=== PATIENT | female | born 1980 | race Caucasian/White ===

== ENCOUNTER 2017-01-27 15:33 | Emergency (ER) | payer OTHER ==
[~2017-01-27] VITALS: Ht 177.8 cm; Wt 85.3 kg
[2017-01-27 15:56] VITALS: BP 113/66
--- NOTE | 2017-01-27 16:11 | PHYS DOC ---
Past History Past Medical History: No Pertinent History Past Surgical History: Cholecystectomy Alcohol Use: None Drug Use: None Adult General Chief Complaint Chief Complaint: KNEE INJURY [facility] HPI Patient is a 36 year old female who presents with left knee injury that happened prior to arrival while she was moving some furniture. Patient states she hyperextended her left knee. Patient states she can walk on it however is painful when applying pressure. Patient denies any other injuries. Patient has no complaints of hip pain or ankle pain. Pertinent exam findings: Left knee tender to palpation over the proximal tibia and joint line no effusion ED course: Patient seen upon arrival x-ray of the left knee ordered 1615: Rest the x-ray results with the patient who wanted an Tai bandage and recommended follow-up with PCP in one to 2 days Pertinent findings: 3 view x-ray of the left knee shows no obvious fracture MMD: After reviewing the chart, CC/HPI/PMH, physical exam, x-ray results I do not believe the patient sustained a significant injury to the left lower leg wanting further workup and admission at this time. I believe the patient is stable to be discharged home with short-term follow-up with her PCP for further evaluation and possible MRI of her left knee to evaluate further for potential cartilage or ligament injury. Patient is comfortable being discharged home. Post Tai wrap application the left lower leg is neurovascularly intact. Additional verbal discharge instructions were provided to the patient and that if symptoms get worse or any new symptoms arise that are worrisome to the patient she is to return to the emergency room immediately Review of Systems Review of Systems Constitutional: Denies fever or chills [] Eyes: Denies change in visual acuity, redness, or eye pain [] HENT: Denies nasal congestion or sore throat [] Respiratory: Denies cough or shortness of breath [] Cardiovascular: No additional information not addressed in HPI [] GI: Denies abdominal pain, nausea, vomiting, bloody stools or diarrhea [] : Denies dysuria or hematuria [] Musculoskeletal: Left knee pain Integument: Denies rash or skin lesions [] Neurologic: Denies headache, focal weakness or sensory changes [] Endocrine: Denies polyuria or polydipsia [] Allergies Allergies Allergies Coded Allergies Type Severity Reaction Last Updated Verified No Known Drug Allergies 01/27/17 No Physical Exam Physical Exam Constitutional: Well developed, well nourished, no acute distress, non-toxic appearance. [] HENT: Normocephalic, atraumatic, bilateral external ears normal, oropharynx moist, no oral exudates, nose normal. [] Eyes: PERRLA, EOMI, conjunctiva normal, no discharge. [] Neck: Normal range of motion, no tenderness, supple, no stridor. [] Cardiovascular:Heart rate regular rhythm, no murmur [] Lungs & Thorax: Bilateral breath sounds clear to auscultation [] Abdomen: Bowel sounds normal, soft, no tenderness, no masses, no pulsatile masses. [] Skin: Warm, dry, no erythema, no rash. [] Back: No tenderness, no CVA tenderness. [] Extremities: Joint tenderness and proximal tibial tenderness to the left knee with decreased range of motion secondary to pain Neurologic: Alert and oriented X 3, normal motor function, normal sensory function, no focal deficits noted. [] Psychologic: Affect normal, judgement normal, mood normal. [] Current Patient Data Vital Signs Vital Signs Date Time Temp Pulse Resp B/P (MAP) Pulse Ox O2 Delivery O2 Flow Rate FiO2 01/27/17 15:56 98.0 81 20 98 EKG EKG [] Radiology/Procedures Radiology/Procedures X-ray three-view left knee no obvious fracture [] Course & Med Decision Making Course & Med Decision Making Pertinent Labs and Imaging studies reviewed. (See chart for details) [] Dragon Disclaimer Dragon Disclaimer This chart was dictated in whole or in part using Voice Recognition software in a busy, high-work load, and often noisy Emergency Department environment. It may contain unintended and wholly unrecognized errors or omissions. Departure Departure: Impression: Primary Impression: Left knee sprain Disposition: 01 HOME, SELF-CARE Condition: GUARDED Referrals: FERNANDO HOLM MD (PCP) Additional Instructions: Please follow up with her family doctor one to 2 days Problem Qualifiers Primary Impression: Left knee sprain Encounter type: initial encounter Involved ligament of knee: unspecified ligament Qualified Codes: S83.92XA - Sprain of unspecified site of left knee, initial encounter DAVI GARCIA DO January 27, 2017 16:11
--- NOTE | 2017-01-27 16:12 | RAD ---
Indication persistent pain after moving from a chair today. AP oblique and lateral views of the left knee were obtained. No bony abnormality is seen
== END 2017-01-27 16:24 | disposition home or self-care (01) ==
LOC: ER 15:33
DX: S83.92XA Sprain of unspecified site of left knee, initial encounter (principal); X58.XXXA Exposure to other specified factors, initial encounter; Y93.89 Activity, other specified; Y92.89 Other specified places as the place of occurrence of the external cause; Y99.8 Other external cause status
CPT/HCPCS: 73562; 99284